=== PATIENT | female | born 1975 ===

== ENCOUNTER 2019-02-02 08:56 | Outpatient (CLI) | payer OTHER ==
--- NOTE | 2019-02-02 10:01 | MMO ---
Bilateral MAMMO Bilat Screen DDI+ABDOULAYE. CLINICAL HISTORY: Patient is 43 years old and is seen for screening. The patient has the following family history of breast cancer: cousin female, malignant (generic) and maternal aunt. The patient has no personal history of cancer. The patient has a history of right Ultrasound Guided Core Biopsy in September, - benign and bilateral Breast reduction in May,. VIEWS: The views performed were: bilateral craniocaudal with tomosynthesis; bilateral mediolateral oblique with tomosynthesis; and left exaggerated craniocaudal. FILMS COMPARED: The present examination has been compared to prior imaging studies performed at [facility] on 04/11/2008, 08/06/2009, 07/02/2015 and 10/12/2016. MAMMOGRAM FINDINGS: There are scattered fibroglandular densities. New density outer posterior left breast seen on cc view. Recommend diagnostic left breast exam. In the right breast, there are no suspicious masses, calcifications or areas of architectural distortion. IMPRESSION: FINDING IN THE LEFT BREAST REQUIRES ADDITIONAL EVALUATION. ADDITIONAL IMAGING. THE RESULTS OF THIS EXAM WERE SENT TO THE PATIENT. ACR BI-RADS Category 0 - Incomplete: Need additional imaging evaluation. [facility] will notify the patient of the need for additional imaging services. MAMMOGRAPHY NOTE: 1. A negative mammogram report should not delay a biopsy if a dominant of clinically suspicious mass is present. 2. Approximately 10% to 15% of breast cancers are not detected by mammography. 3. Adenosis and dense breasts may obscure an underlying neoplasm.
== END 2019-02-02 08:57 | disposition home or self-care (01) ==
LOC: BICMAMMO 08:56
PROVIDERS: ATTEND Family Medicine
DX: Z12.31 Encounter for screening mammogram for malignant neoplasm of breast (principal); Z80.3 Family history of malignant neoplasm of breast
CPT/HCPCS: 77063; 77067

== ENCOUNTER 2019-03-28 08:20 | Outpatient (CLI) | payer OTHER ==
--- NOTE | 2019-03-28 09:23 | MMO ---
Left Breast MAMMO Unilat Diag DDI LT+ABDOULAYE. CLINICAL HISTORY: Patient is 43 years old and is seen for diagnostic exam. The patient has the following family history of breast cancer: cousin female, malignant (generic) and maternal aunt. The patient has no personal history of cancer. The patient has a history of right Ultrasound Guided Core Biopsy in September, - benign and bilateral Breast reduction in May,. VIEWS: The views performed were: left craniocaudal spot compression with tomosynthesis and left mediolateral with tomosynthesis. FILMS COMPARED: The present examination has been compared to prior imaging studies performed at [facility] on 07/02/2015, 10/12/2016, 02/02/2019 and 03/28/2019. MAMMOGRAM FINDINGS: There are scattered fibroglandular densities. There is an asymmetry seen in the CC view only seen in the posterior outer region of the left breast. No sonographic correlate. IMPRESSION: ASYMMETRY IN THE LEFT BREAST IS PROBABLY BENIGN. FOLLOW-UP IN 6 MONTHS IS RECOMMENDED. THE RESULTS OF THIS EXAM WERE SENT TO THE PATIENT. ACR BI-RADS Category 3 - Probably benign finding - short interval follow-up suggested. [facility] will notify the patient of the need for additional imaging services. MAMMOGRAPHY NOTE: 1. A negative mammogram report should not delay a biopsy if a dominant of clinically suspicious mass is present. 2. Approximately 10% to 15% of breast cancers are not detected by mammography. 3. Adenosis and dense breasts may obscure an underlying neoplasm. Reported by: SUSANNAH ROTH MD Electonically Signed: [id number]
--- NOTE | 2019-03-28 10:56 | ULT ---
LIMITED LEFT BREAST ULTRASOUND: 03/28/2019 PROVIDED CLINICAL HISTORY: Abnormal mammogram findings. FINDINGS: Limited sonographic interrogation of the left breast was performed in the region of mammographic conc francesca. No sonographic abnormality is evident to correspond to the mammogram finding. IMPRESSION: No sonographic correlate for the mammogram finding is evident. Six-month follow-up diagnostic left m ammogram is recommended. BI-RADS category 3-Probably benign findings. POS: OFF
== END 2019-03-28 08:21 | disposition home or self-care (01) ==
LOC: BICMAMMO 08:20
PROVIDERS: ATTEND Family Medicine
DX: R92.2 Inconclusive mammogram (principal); N64.89 Other specified disorders of breast
CPT/HCPCS: G0279